=== PATIENT | female | born 1965 | race Caucasian/White ===

== ENCOUNTER 2022-07-20 16:10 | Emergency (ER) | payer BC ==
[~2022-07-20] VITALS: Ht 162.6 cm; Wt 72.6 kg
--- NOTE | 2022-07-20 16:10 | NUR ---
BIBS FOR ANXIETY/SHORTNESS OF BREATH. A/O X 3, ABLE TO MAKE NEEDS KNOWN. TOLERATING WELL ON ROOM AIR.
--- NOTE | 2022-07-20 17:00 | NUR ---
BLOOD SAMPLES OBTAINED
--- NOTE | 2022-07-20 17:00 | NUR ---
PATIENT REFUSING IV START
[2022-07-20] MEDS ORDERED: LORAZEPAM 1 MG TABLET PO ONE (17:30)
[2022-07-20] MEDS ORDERED: LORAZEPAM 1 MG TABLET ONE (17:30)
[2022-07-20 18:20] LABS: BASOPHILS # (AUTO) 0.1 K/uL (0.0-0.2); BASOPHILS % (AUTO) 0.9 % (0.0-2.0); EOSINOPHILS % (AUTO) 1.1 % (0.0-6.0); HEMATOCRIT 40 % (33-45); HEMOGLOBIN 13.1 g/dL (11.5-14.8); LYMPHOCYTES # (AUTO) 2.5 K/uL (0.8-4.8); LYMPHOCYTES % (AUTO) 26.4 % (20.0-44.0); MEAN CORPUSCULAR HGB CONC 33 g/dl (31.0-36.0); MEAN CORPUSCULAR VOLUME 90 fL (82-100); MONOCYTES # (AUTO) 0.7 K/uL (0.1-1.30); MONOCYTES % (AUTO) 7.2 % (2.0-12.0); NEUTROPHILS % (AUTO) 64.4 % (43.0-81.0); PLATELET COUNT (AUTO) 447 K/uL (150-450); RED BLOOD CELL COUNT(AUTO) 4.44 MIL/uL (4.0-5.2); WHITE BLOOD COUNT (AUTO) 9.3 K/uL (4.3-11.0)
[2022-07-20 18:34] LABS: ALANINE AMINOTRANSFERASE 18 U/L (12-78); ALBUMIN 4.3 g/dL (3.4-5.0); ALKALINE PHOSPHATASE 65 U/L (46-116); ASPARTATE AMINOTRANSFERASE 18 U/L (15-37); BILIRUBIN,DIRECT 0.1 mg/dL (0.0-0.2); BILIRUBIN,TOTAL 0.4 mg/dL (0.2-1.0); CARBON DIOXIDE 28 mmol/L (21-32); CHLORIDE 105 mmol/L (98-107); CREATININE 0.7 mg/dL (0.6-1.3); GLUCOSE 99 mg/dL (74-106); SODIUM SERUM 141 mmol/L (136-145); TOTAL PROTEIN, SERUM 7.5 g/dL (6.4-8.2); UREA NITROGEN, BLOOD 9 mg/dL (7-18)
[2022-07-20] MEDS ORDERED: LORA-259 PO (19:03)
[2022-07-20] MEDS ORDERED: IBUP-1955 PO (19:23)
[2022-07-20 19:29] VITALS: BP 129/84
== END 2022-07-20 19:32 | disposition home or self-care (01) ==
LOC: ER 16:10
DX: R07.89 Other chest pain (principal); F41.9 Anxiety disorder, unspecified; Z79.899 Other long term (current) drug therapy; Z88.2 Allergy status to sulfonamides
CPT/HCPCS: 36415; 71045-TC; 80048-TC; 80076-TC; 84484-TC; 85025-TC